=== PATIENT | male | born 1995 | race Two or more races ===

== ENCOUNTER 2021-03-01 05:01 | Inpatient (IN) | payer MEDICAID ==
[~2021-03-01] VITALS: Ht 175.3 cm; Wt 78.6 kg
[2021-03-01] VITALS (15 sets, daily range): BP systolic 91–131; BP diastolic 47–86
--- NOTE | 2021-03-01 05:01 | NUR ---
Pt BIB friends and patient's mother. Patient was seen in the back seat of car, unresponsive and grunting. Patient placed in gurny and placed in room 1A and code blue was called. Patient with pin point pupils and not responding to verbal and painful stimuli. Dr. Cleaning at bedside, MSE in progress.
[2021-03-01] MEDS ORDERED: NALOXONE HCL 0.4 MG/ML AMPUL ONE ×3 (05:11→05:13)
[2021-03-01] MEDS ORDERED: IV NORMAL SALINE 1000 ML BAG IV ONE ×2 (05:15→06:15)
[2021-03-01] MEDS ORDERED: LORAZEPAM 2 MG/1 ML VIAL ONE ×2 (05:19→06:08)
--- NOTE | 2021-03-01 05:44 | NUR ---
Xray at bedside.
[2021-03-01] MEDS ORDERED: SUCCINYLCHOLINE CHLORIDE 200 MG/10 ML VIAL ONE (05:45)
[2021-03-01] MEDS ORDERED: ROCURONIUM BROMIDE 50 MG/5 ML VIAL ONE (05:45)
[2021-03-01] MEDS ORDERED: ETOMIDATE 20 MG/10 ML VIAL IV ONE (05:45)
[2021-03-01] MEDS ORDERED: NALOXONE HCL 0.4 MG/ML AMPUL IV ONE (05:45)
[2021-03-01] MEDS ORDERED: SUCCINYLCHOLINE CHLORIDE 200 MG/10 ML VIAL IV ONE (05:45)
[2021-03-01] MEDS ORDERED: ETOMIDATE 20 MG/10 ML VIAL ONE (05:45)
[2021-03-01] MEDS ORDERED: LORAZEPAM 2 MG/1 ML VIAL IV ONE ×2 (05:45→06:00)
[2021-03-01] MEDS ORDERED: PROPOFOL 100 ML ONE (05:45)
[2021-03-01 05:48] LABS: HEMATOCRIT 45.1 % (36.7-47.1); MEAN CORPUSCULAR HEMOGLOBIN 31.5 uug (23.8-33.4); MEAN CORPUSCULAR VOLUME 95.1 fL (73.0-96.2); PLATELET COUNT (AUTO) 298 K/uL (152-348)
[2021-03-01 05:52] LABS: CREATININE 1.8 mg/dL (0.6-1.3); POTASSIUM 5.3 mmol/L (3.5-5.1)
[2021-03-01] MEDS ORDERED: PROPOFOL 100 ML IV STA (05:52)
[2021-03-01 05:58] LABS: BILIRUBIN,DIRECT 0.1 mg/dL (0.0-0.2); BILIRUBIN,TOTAL 0.3 mg/dL (0.2-1.0); TOTAL PROTEIN, SERUM 7.1 g/dL (6.4-8.2)
[2021-03-01] MEDS ORDERED: PROPOFOL 200 MG/20 ML BOTTLE IV ONE (06:00)
[2021-03-01] MEDS ORDERED: ROCURONIUM BROMIDE 100 MG in IV NORMAL SALINE 90 ML IV STA (06:00)
[2021-03-01 06:02] LABS: ABG HCO3 16.7 mmol/L; ABG PCO2 43.7 mmHg (35.0-45.0); ABG PH 7.201 (7.350-7.450); ABG PO2 65.2 mmHg (75.0-100.0); ABG SITE LEFT RADIAL; ABG TOTAL HEMOGLOBIN 15.6 G/dL (13.5-18.0); COHb 0.9 % (0.5-1.5); MetHb 0.3 % (0.0-1.5); O2Hb 88.6 % (94.0-97.0); VENT MODE VENT - A/C; VT, ABG 450 mL
[2021-03-01] MEDS ORDERED: CEFTRIAXONE 1 G in IV DEXTROSE 5% 50 ML IV ONE (06:15)
--- NOTE | 2021-03-01 06:16 | NUR ---
Called to ED for code blue; pt subsequently intubated and placed on a ventilator and blood gas was drawn. Pt is now on Null ventilator on settings AC 28, VT 500, PEEP +7 and FIO2-100%. 8.0 ETT is at approx. 25cm at the lip and is patent and secure. BVM is at bedside.
[2021-03-01] MEDS ORDERED: MIDAZOLAM HCL 50 MG in IV NORMAL SALINE 40 ML IV STA (06:24)
[2021-03-01 06:27] LABS: ETHANOL < 3 MG/DL (0-0)
[2021-03-01] MEDS ORDERED: CEFTRIAXONE /D5W 50ML IVPB **ER PYXIS IV ONE (06:28)
[2021-03-01] MEDS ORDERED: levETIRAcetam IV 1,000 MG in IV DEXTROSE 5% 100 ML IV ONE (06:30)
--- NOTE | 2021-03-01 06:30 | NUR ---
Called [facility], paged Sandy Schaffer.
[2021-03-01 06:39] LABS: *BILIRUBIN,URIN NEGATIVE (NEGATIVE); *CLARITY,URINE CLEAR (CLEAR); *COLOR,URINE YELLOW (YELLOW); *KETONES,URINE NEGATIVE (NEGATIVE); *UROBILINOGEN,URINE 0.2 E.U./dl (NORMAL); LEUKOCYTE ESTERASE ,URINE NEGATIVE (NEGATIVE); NITRITE, URINE NEGATIVE (NEGATIVE); UGLUCOSE 2+ (NEGATIVE)
[2021-03-01 06:42] LABS: *BLOOD, URINE TRACE (NEGATIVE)
[2021-03-01 06:46] LABS: ACETAMINOPHEN < 2.0 ug/mL (10-30)
[2021-03-01 06:50] LABS: *AMPHETAMINE, URINE NEGATIVE (NEGATIVE); *CANNABINOID, URINE NEGATIVE (NEGATIVE); *COCCAINE, URINE NEGATIVE (NEGATIVE); *OPIATE, URINE POSITIVE (NEGATIVE); *PHENCYCLIDINE SCREEN,URINE NEGATIVE (NEGATIVE)
[2021-03-01 06:54] LABS: BACTERIA,URINE NONE SEEN /HPF (NONE SEEN); RBC,URINE 0-3 /HPF (0-3); WBC,URINE 0-3 /HPF (0-3)
[2021-03-01 06:55] LABS: MUCUS,URINE FEW /LPF (0-FEW); SQUAMOUS EPITHELIAL CELL,UR FEW /HPF (NONE SEEN)
[2021-03-01] MEDS ORDERED: levETIRAcetam 500 MG/5 ML VIAL IV ONE (06:57)
[2021-03-01] MEDS ORDERED: FENTANYL CITRATE/PF 1,000 MCG in IV NORMAL SALINE 80 ML IV PRN (07:00)
--- NOTE | 2021-03-01 07:10 | NUR ---
Pt received laying in bed, semi-Salmon's, unable to communicate.. ETT 8.0, in place and secure with [place] Fast.. Continuous mechanical ventilation, vent: Null with settings: A/C 28, Vt 500, PEEP +7, FiO2 100%, tolerating well, no changes made at this time.. Vent alarms on and audible, functioning properly at this time.. Will continue to monitor..
[2021-03-01 07:19] LABS: BAND % (MANUAL) 19 % (0-10); LYMPHOCYTES % (MANUAL) 7 % (20-40); METAMYELOCYTES % 1 % (0-1); MONOCYTES % (MANUAL) 5 % (2-10); NEUTROPHILS % (MANUAL) 68 % (42-75)
--- NOTE | 2021-03-01 07:52 | NUR ---
REPORT GIVEN TO TABITHA OF ICU, PATIENT WILL BE GOING TO BED 4 UNDER THE CARE OF MD DAVIS
--- NOTE | 2021-03-01 08:30 | NUR ---
Dr. Puckett & Dr. Soto notified of patients arrival in ICU.
--- NOTE | 2021-03-01 08:40 | NUR ---
Dr. Ko in unit to assess patient
--- NOTE | 2021-03-01 08:43 | NUR ---
Patient shivering, gagging, hyperventilating, tachycardic during switch to Versed + Fentanyl. Sedation titrated up.
--- NOTE | 2021-03-01 08:49 | NUR ---
Patient transferred via [facility] protocol, respiratory assisted with transfer
[2021-03-01] MEDS ORDERED: PIPERACILLIN/TAZO 2.25 G in IV DEXTROSE 5% 50 ML IV SCH (09:15)
[2021-03-01] MEDS ORDERED: MORPHINE SULFATE 2 MG/1 ML DISP.SYRIN IV PRN ×2 (09:15→09:30)
[2021-03-01] MEDS ORDERED: LORAZEPAM 2 MG/1 ML VIAL IV PRN (09:15)
[2021-03-01] MEDS: IV D5/ 0.9% NACL 1,000 ML IV PRN ×2 (09:19→22:09)
[2021-03-01] MEDS ORDERED: PIPERACILLIN SODIUM/TAZOBACTAM 3.375 G in IV DEXTROSE 5% 50 ML IV ONE (09:30)
--- NOTE | 2021-03-01 09:30 | NUR ---
Dr. Soto in unit to assess patient
[2021-03-01] MEDS: MIDAZOLAM HCL 50 MG in IV NORMAL SALINE 40 ML IV PRN ×3 (10:50→23:53)
[2021-03-01] MEDS: PROPOFOL 100 ML IV PRN ×3 (10:59→19:50)
--- NOTE | 2021-03-01 11:04 | NUR ---
Patient fully awake - attempting to remove ET tube - orders received for Propofol Addendum: 03/01/21 at 1117 by TABITHA CAT RN Dr. Soto with orders to initiate Propofol infusion
--- NOTE | 2021-03-01 11:35 | NUR ---
Social Service Consultation: Mica Splitter Consultation for overdose. Patient is a 25 year old male. Per ED notes, patient was brought in by patient's mother and friends, after being found unresponsive. Patient is intubated and sedated, not interviewable. Patient's mother is bedside, and this BIOLOGICAL TECHNICAL OFFICER was able to gather information from patient's mother, Cassy, . Per patient's mother's report, patient lives at home ([address] [place] [address], [address], [place] [address]) with his mother and 14 year old sister. Patient's mother reported that patient's father is . Patient is independent with all ADL's and works a couple of side jobs, doing construction and also providing hair cuts. Per patient's mother, patient was at a friend's house in the [facility], hanging out with friends, when she got a call at around 3am from his friends telling her that patient was not responsive. Patient's mother stated that she drove from her home near [place], to the [facility], found the patient unresponsive at the friend's house and brought him to the ED in her own car. This BIOLOGICAL TECHNICAL OFFICER asked about patient's use of substances, and patient's mother stated "you know this age, they drink and experiment with some drugs". Patient's mother stated patient does drink and smokes marijuana, but was not able to provide details on frequency and amount. Per toxicology report, patient tested positive for opiates and benzos. Patient's mother stated that patient does not have any medical problems and does not take any prescribed medications. Patient's mother stated patient does not have a hx of mental illness, no hx of SI. Patient's mother stated not having any questions at this time, as she is well supported by friends and digital sales assistant, who are present at the hospital. Mica Splitter will remain available, as needed.
--- NOTE | 2021-03-01 12:11 | NUR ---
Delia LOVELL from Infectious Disease here to assess patient
[2021-03-01] MEDS: ACETAMINOPHEN 650 MG SUPP.RECT RC PRN (14:25)
--- NOTE | 2021-03-01 14:30 | NUR ---
Dr. Martinez in unit to assess patient
--- NOTE | 2021-03-01 14:33 | NUR ---
Patients Sinus Tachycardia as high as 130 - Rectal temp taken = 102.4 -- Cooling blanket applied & Tylenol Suppository given. Heart rate now 102 and decreasing 10 minutes after cooling measures
[2021-03-01] MEDS: PIPERACILLIN SODIUM/TAZOBACTAM 3.375 G in IV DEXTROSE 5% 100 ML IV SCH (17:17)
--- NOTE | 2021-03-01 17:54 | NUR ---
Patient stable. Sedated on Propofol @ 30mcg/kg & Midazolam @ 7mg/hr. Gag + cough reflex present. Pinpoint pupils. But during a change in sedative drips - patient did awaken - he opened his eyes moved both upper/lower extremities and even seemed to track his mother around the room. Sinus Rhythm. BPs controlled w/o the need of pressors. Patients temperature found to be 102.4 - was placed on cooling blanket and is now 98.1 - rectal probe in place. Some shivering observed upon arrival and sporadically throughout shift. Saturations >94% on vent. Ventilator settings: AC:28 Fio2: 100% TV: 100% PEEP: 7 - ABGs ordered for tomorrow AM. No labored breathing. At times tachypneic so sedations was titrated accordingly GI/: No bowel movement. 1150 mL of tea colored urine w/ sediment. Misc: SCDs applied
[2021-03-01] MEDS: HEPARIN SODIUM,PORCINE 5,000 UNITS/ML VIAL SQ SCH (20:46)
[2021-03-02] VITALS (25 sets, daily range): BP systolic 91–133; BP diastolic 50–87
[2021-03-02] MEDS: PROPOFOL 100 ML IV PRN (01:41)
[2021-03-02] MEDS: PIPERACILLIN SODIUM/TAZOBACTAM 3.375 G in IV DEXTROSE 5% 100 ML IV SCH ×3 (01:48→17:41)
--- NOTE | 2021-03-02 03:30 | NUR ---
Left ear & area of head photo taken / wound. Digitally disimpacted. Maroon colored drainage from PEG tube, to gravity drain.
--- NOTE | 2021-03-02 03:30 | NUR ---
PATIENT ON CONT SOLORIO VENT WITH 8.O ET/TUBE ,25CM LIP LINE, MOVE ANCHOR FAST Q2 HOURS, PT IS SEDATED, PT DOES ASSIST AT TIMES, GOOD COUGH EFFORT, SUCTIONED LIGHT PINKISH TING SECRETIONS AND SUCTION MOUTH WITH LAURA FATIMA WELL, CHANGE HME, ALL VENT ALARMS GOOD, NO VENT CHANGES MADE AT THIS TIME, ABG ORDER FOR 07:00 WILL DO EARLY, VENT PLUGGED INTO RED OUTLET.Anita CALZADA RCP Addendum: 03/02/21 at 0333 by JOSÉ CALZADA RT Amended: Links added.
--- NOTE | 2021-03-02 03:37 | NUR ---
PT ON CURRENT VENT SETTINGS, A/C 28, 500ML, PEEP 7, 100%. D CALZADA [facility]
--- NOTE | 2021-03-02 04:00 | NUR ---
Sedation vacation: opens eyes & tracks.
[2021-03-02] MEDS: ACETAMINOPHEN 650 MG SUPP.RECT RC PRN (05:05)
[2021-03-02 05:16] LABS: HEMATOCRIT 40.4 % (36.7-47.1); MEAN CORPUSCULAR HEMOGLOBIN 31.4 uug (23.8-33.4); MEAN CORPUSCULAR VOLUME 92.8 fL (73.0-96.2); PLATELET COUNT (AUTO) 142 K/uL (152-348)
[2021-03-02 05:38] LABS: MAGNESIUM 1.8 mg/dL (1.8-2.4); PHOSPHOROUS 1.9 mg/dL (2.5-4.9); POTASSIUM 3.6 mmol/L (3.5-5.1); TOTAL PROTEIN, SERUM 6.2 g/dL (6.4-8.2)
[2021-03-02 05:56] LABS: ABG BASE EXCESS -0.1 mmol/L; ABG HCO3 23.8 mmol/L; ABG PCO2 36.5 mmHg (35.0-45.0); ABG PH 7.432 (7.350-7.450); ABG PO2 294.8 mmHg (75.0-100.0); ABG SITE RIGHT BRACHIAL; COHb 0.7 % (0.5-1.5); MetHb 0.3 % (0.0-1.5); O2Hb 98.9 % (94.0-97.0); VENT MODE VENT - A/C; VT, ABG 500 mL
--- NOTE | 2021-03-02 07:42 | NUR ---
Weaning trial started, CPAP, PS 7, PEEP +5.. will continue to monitor..
--- NOTE | 2021-03-02 07:45 | NUR ---
Lowered sedation for SBT. ABG in [address] Soto order in the unit at this time
[2021-03-02] MEDS: PANTOPRAZOLE SODIUM 40 MG VIAL IV SCH (08:55)
[2021-03-02] MEDS: HEPARIN SODIUM,PORCINE 5,000 UNITS/ML VIAL SQ SCH ×2 (08:58→21:11)
[2021-03-02 08:59] LABS: ABG BASE EXCESS -0.3 mmol/L; ABG HCO3 24.6 mmol/L; ABG PH 7.396 (7.350-7.450); ABG PO2 76.3 mmHg (75.0-100.0); ABG SITE RIGHT RADIAL; ABG TOTAL HEMOGLOBIN 14.9 G/dL (13.5-18.0); COHb 0.6 % (0.5-1.5); CPAP,BG 7 cmH20; MetHb 0.3 % (0.0-1.5); O2Hb 95.1 % (94.0-97.0); VENT MODE VENT - CPAP
[2021-03-02] MEDS ORDERED: DC PROPOFOL ONCE EXTUBATED XX PRN (09:10)
--- NOTE | 2021-03-02 09:30 | NUR ---
patient extubated per orders. patient was placed on highflow nasal canula on 40L 60% FiO2.
--- NOTE | 2021-03-02 09:30 | NUR ---
Weaning trial passed, pt extubated without incident and placed on High Flow, 40 Lpm @ 60%, tolerating well at this time, will continue to monitor.. RN and pt mother at bedside..
[2021-03-02] MEDS: IV D5/ 0.9% NACL 1,000 ML IV PRN (10:51)
[2021-03-02] MEDS ORDERED: POTASSIUM PHOSPHATE MM 15 MMOL in IV NORMAL SALINE 250 ML IV ONE (16:00)
[2021-03-02] MEDS ORDERED: MORPHINE SULFATE 2 MG/1 ML DISP.SYRIN IV PRN (23:15)
[2021-03-03] VITALS (19 sets, daily range): BP systolic 96–135; BP diastolic 51–84
[2021-03-03] MEDS: IV D5/ 0.9% NACL 1,000 ML IV PRN (00:06)
[2021-03-03] MEDS: PIPERACILLIN SODIUM/TAZOBACTAM 3.375 G in IV DEXTROSE 5% 100 ML IV SCH ×3 (02:09→17:53)
--- NOTE | 2021-03-03 03:20 | NUR ---
Pt is now on high flow nasal cannula 30LPM and FIO2-60%. No respiratory distress noted.
[2021-03-03 05:36] LABS: HEMATOCRIT 43.3 % (36.7-47.1); MEAN CORPUSCULAR HEMOGLOBIN 30.9 uug (23.8-33.4); MEAN CORPUSCULAR VOLUME 92.4 fL (73.0-96.2); PLATELET COUNT (AUTO) 160 K/uL (152-348)
[2021-03-03 05:43] LABS: CREATININE 0.8 mg/dL (0.6-1.3); MAGNESIUM 1.9 mg/dL (1.8-2.4); PHOSPHOROUS 2.5 mg/dL (2.5-4.9); POTASSIUM 3.5 mmol/L (3.5-5.1)
[2021-03-03 05:49] LABS: ABG BASE EXCESS -1.8 mmol/L; ABG HCO3 21.3 mmol/L; ABG PCO2 31.9 mmHg (35.0-45.0); ABG PH 7.443 (7.350-7.450); ABG PO2 143.3 mmHg (75.0-100.0); ABG SITE RIGHT BRACHIAL; ABG TOTAL HEMOGLOBIN 14.7 G/dL (13.5-18.0); COHb 1.1 % (0.5-1.5); MetHb 0.4 % (0.0-1.5); O2Hb 97.9 % (94.0-97.0)
--- NOTE | 2021-03-03 05:55 | NUR ---
Per ABG results pt is now on HFNC 30LPM and FIO2-50%
[2021-03-03] MEDS: PANTOPRAZOLE SODIUM 40 MG VIAL IV SCH (08:14)
[2021-03-03] MEDS: HEPARIN SODIUM,PORCINE 5,000 UNITS/ML VIAL SQ SCH ×2 (08:19→20:48)
--- NOTE | 2021-03-03 08:34 | NUR ---
Upon receiving patient, rectal temp at 100.6 - cooling measures in place and will continue to closely monitor.
[2021-03-03] MEDS: ACETAMINOPHEN 650 MG SUPP.RECT RC PRN (09:33)
--- NOTE | 2021-03-03 09:35 | NUR ---
Patient refused tylenol suppository. Educated on importance, patient asked to have a PO tylenol instead. Will notify MD and change depending on result of swallow eval.
--- NOTE | 2021-03-03 09:56 | NUR ---
Seen by Dr Soto - pulmonology. New orders received and implemented.
--- NOTE | 2021-03-03 10:26 | NUR ---
Seen by speech therapist for swallow eval post-extubation. ST recommendations inputted and implemented. Tylenol supp changed to PO - given as ordered.
[2021-03-03] MEDS: ACETAMINOPHEN 325 MG TABLET PO PRN (10:57)
--- NOTE | 2021-03-03 11:08 | NUR ---
Seen by physical therapy. Changed linen while patient is up with physical therapy.
--- NOTE | 2021-03-03 12:37 | NUR ---
Patient covid PCR swab done and sent to lab. Changed patient status to PUI and placed on isolation precaution. Patient's mom at bedside and made aware of visitation protocol for COVID PUI patients. Mother verbalized understanding and requested to speak with heating unit mechanic. Director extension given to her at this time. Allowed to stay until patient finishes eating lunch. Proper PPE provided to visitor.
--- NOTE | 2021-03-03 14:06 | NUR ---
Patient on room air since lunch time at 1230, SpO2 95-98% on room air.
--- NOTE | 2021-03-03 14:39 | NUR ---
Rectal temp down to 97.7 - cooling blanket turned off but will keep in patient room for continuous temperature monitoring.
[2021-03-03 15:20] LABS: ALBUMIN 3.1; ALPHA-1-GLOBULIN 0.3; ALPHA-2-GLOBULIN 0.7; BETA GLOBULIN 0.7; GAMMA GLOBULIN 0.9; M-SPIKE Not Observed
[2021-03-03 15:21] LABS: A/G RATIO 1.2; GLOBULIN, TOTAL 2.6
--- NOTE | 2021-03-03 16:38 | NUR ---
Patient moved to CCU-4. Able to transfer to wheelchair with SBA. Patient requested guzman removal and voiding trial. Will notify MD. Central line dressing visibly soiled and changed at this time.
--- NOTE | 2021-03-03 17:15 | NUR ---
Received MD order of status change to Telemetry. Will remain in CCU-4 until able to be transferred to Telemetry unit
--- NOTE | 2021-03-03 18:55 | NUR ---
Patient SpO2 at 85-88%. Placed on 4L NC - rechecked SpO2 96-97%. Denies pain or SOB.
--- NOTE | 2021-03-03 19:15 | NUR ---
received patient awake , oriented , , able to follow command , temp 99.0 rectal , sr at 79 , iv site intact on right arm, oxygen at 4l , denies pain at this time , nonproductive cough noted
--- NOTE | 2021-03-03 19:15 | NUR ---
got report from from day shift nurse , patient is telemetry status
--- NOTE | 2021-03-03 19:15 | NUR ---
CORRECTION : RIJ INTACT , USES URINAL , ON COOLING BLANKET
--- NOTE | 2021-03-03 23:30 | NUR ---
cooling blanket was turned off
[2021-03-04] MEDS: PIPERACILLIN SODIUM/TAZOBACTAM 3.375 G in IV DEXTROSE 5% 100 ML IV SCH ×3 (01:55→18:01)
--- NOTE | 2021-03-04 02:00 | NUR ---
awake oriented , denies pain at this time , no fever noted
[2021-03-04 05:27] LABS: HEMATOCRIT 42.6 % (36.7-47.1); MEAN CORPUSCULAR HEMOGLOBIN 31.7 uug (23.8-33.4); MEAN CORPUSCULAR VOLUME 92.2 fL (73.0-96.2); PLATELET COUNT (AUTO) 197 K/uL (152-348)
[2021-03-04 05:39] LABS: CREATININE 0.9 mg/dL (0.6-1.3); PHOSPHOROUS 2.8 mg/dL (2.5-4.9); POTASSIUM 3.2 mmol/L (3.5-5.1)
[2021-03-04] MEDS: PANTOPRAZOLE SODIUM 40 MG TABLET.DR PO SCH (06:26)
[2021-03-04] MEDS: HEPARIN SODIUM,PORCINE 5,000 UNITS/ML VIAL SQ SCH ×2 (08:08→20:49)
[2021-03-04] MEDS: ACETAMINOPHEN 325 MG TABLET PO PRN (08:21)
[2021-03-04] MEDS ORDERED: POTASSIUM CHLORIDE 20 MEQ TAB.PRT.SR PO ONE (09:45)
[2021-03-04] MEDS: ACIDOPHILUS/BULGARICUS CHEW TAB PO SCH ×2 (10:04→20:49)
--- NOTE | 2021-03-04 11:39 | NUR ---
PT just completed. Patient able to walk around room on his own - no SOB noted. Patient now sitting in chair at bedside.
[2021-03-04 18:00] VITALS: BP 111/61
--- NOTE | 2021-03-04 18:38 | NUR ---
Status improving. Fully A&Ox4. Now ambulatory. Sinus Rhythm & Sinus tachy (at times) when ambulating. BPs wnls. afebrile. Saturations >94% on room air. No SOB reported. GI/: bm x 2. Misc: Did very well with PT and has been cleared by OT.
--- NOTE | 2021-03-04 19:00 | NUR ---
received patient awake , oriented , able to follow command , on RA , denies pain , dry cough noted , no fever , right internal jugular iv intact
[2021-03-04 20:00] VITALS: BP 119/83
--- NOTE | 2021-03-04 21:30 | NUR ---
mother at bedside , notified of room transfer tonight
[2021-03-04] MEDS ORDERED: ONDANSETRON 4 MG/2 ML VIAL IV PRN (22:15)
--- NOTE | 2021-03-04 22:17 | NUR ---
talked to dr mehta , got an order for cough medicatins and zofran
[2021-03-04] MEDS: GUAIFENESIN/CODEINE 5 ML LIQUID UDC PO PRN (22:22)
--- NOTE | 2021-03-04 23:15 | NUR ---
denies any nausea or feeling of vomiting after zofran medications given , dry cough noted
--- NOTE | 2021-03-04 23:15 | NUR ---
report given to hope , history , current events , procedure and medications given .
--- NOTE | 2021-03-04 23:55 | NUR ---
patient was transferred to room 314 accompanied by nurse , telemetry box placed , belongings sent with phone , research biologist, cards and lip gloss .
[2021-03-04 23:56] VITALS: BP 133/79
--- NOTE | 2021-03-05 | NUR ---
Received pt from CCU. Pt is A&Ox4, verbally responsive, able to make needs known. No signs of acute distress, non labored breathing on room air. Pt on soft diet. Pt on isolation due to pending PCR result. Safety measures initiated, call light within reach.
[2021-03-05 00:36] VITALS: BP 113/77
[2021-03-05] MEDS: PIPERACILLIN SODIUM/TAZOBACTAM 3.375 G in IV DEXTROSE 5% 100 ML IV SCH ×3 (01:29→18:33)
[2021-03-05 05:38] VITALS: BP 105/59
[2021-03-05 06:39] LABS: HEMATOCRIT 42.3 % (36.7-47.1); MEAN CORPUSCULAR HEMOGLOBIN 31.7 uug (23.8-33.4); MEAN CORPUSCULAR VOLUME 91.5 fL (73.0-96.2); PLATELET COUNT (AUTO) 227 K/uL (152-348)
[2021-03-05 06:52] LABS: CREATININE 0.9 mg/dL (0.6-1.3); POTASSIUM 3.2 mmol/L (3.5-5.1)
[2021-03-05 07:07] LABS: MAGNESIUM 1.9 mg/dL (1.8-2.4); PHOSPHOROUS 3.3 mg/dL (2.5-4.9)
[2021-03-05] MEDS: PANTOPRAZOLE SODIUM 40 MG TABLET.DR PO SCH (07:47)
--- NOTE | 2021-03-05 07:51 | NUR ---
Slept intermittently, tolerated due medications. No signs of acute distress. No significant change in condition noted through the night. all needs attended. Pending PCR result.
[2021-03-05] MEDS ORDERED: POTASSIUM CHLORIDE 20 MEQ TAB.PRT.SR PO ONE (08:00)
[2021-03-05] MEDS: HEPARIN SODIUM,PORCINE 5,000 UNITS/ML VIAL SQ SCH ×2 (10:04→21:20)
[2021-03-05] MEDS: ACIDOPHILUS/BULGARICUS CHEW TAB PO SCH ×2 (10:26→21:19)
[2021-03-05 11:40] VITALS: BP 116/60
[2021-03-05 15:37] VITALS: BP 112/60
--- NOTE | 2021-03-05 16:30 | NUR ---
Patient is transferred to room 315 per MD order. Patient is cooperative upon assessment. @1800 IV line started at the left hand gauge 22. IV medications given per MD order. Triple lumen IJ intact. All needs met promptly. On room air saturating at 95% no s/s of distress. Will endorse accordingly.
[2021-03-05 20:15] VITALS: BP 116/71
--- NOTE | 2021-03-05 23:00 | NUR ---
R IJ TLC discontinued as ordered. no bleeding noted. Tolerated well by the pt.
[2021-03-06 00:03] VITALS: BP 123/74
[2021-03-06] MEDS: ACETAMINOPHEN 325 MG TABLET PO PRN ×2 (00:30→13:54)
[2021-03-06] MEDS: GUAIFENESIN/CODEINE 5 ML LIQUID UDC PO PRN ×2 (00:30→16:19)
[2021-03-06] MEDS: PIPERACILLIN SODIUM/TAZOBACTAM 3.375 G in IV DEXTROSE 5% 100 ML IV SCH ×2 (02:24→10:15)
[2021-03-06 04:15] VITALS: BP 93/53
[2021-03-06] MEDS: PANTOPRAZOLE SODIUM 40 MG TABLET.DR PO SCH (06:12)
[2021-03-06 06:30] LABS: HEMATOCRIT 44.5 % (36.7-47.1); MEAN CORPUSCULAR HEMOGLOBIN 31.5 uug (23.8-33.4); MEAN CORPUSCULAR VOLUME 91.5 fL (73.0-96.2); PLATELET COUNT (AUTO) 243 K/uL (152-348)
--- NOTE | 2021-03-06 06:41 | NUR ---
Slept intermittently, no significant change in condition noted through the night. Denies pain or discomfort. Coughing noted, PRN cough medicine administered. Tolerated due medications well. IV abx still infusing. All needs attended to and met.
[2021-03-06 06:52] LABS: CREATININE 1.1 mg/dL (0.6-1.3); PHOSPHOROUS 4.9 mg/dL (2.5-4.9); POTASSIUM 3.5 mmol/L (3.5-5.1)
[2021-03-06] MEDS: ACIDOPHILUS/BULGARICUS CHEW TAB PO SCH (08:31)
[2021-03-06] MEDS: HEPARIN SODIUM,PORCINE 5,000 UNITS/ML VIAL SQ SCH (08:32)
--- NOTE | 2021-03-06 09:00 | NUR ---
RECEIVED PATIENT IN ROOM AWAKE ALERT AND ORIENTED COOPERATIVE AT THIS TIME HE IS ON ROOM AIR WITH NO SHORTNESS OF BREATH LEFT HAND/WRIST HEPLOCK IS INTACT WITH NO S/S OF INFILTERATION ON SITE REMAIN ON ATB ORDERED WITH NO ADVERSE OR ALLERGIC REACTIONS AT THIS TIME CALL LIGHTS AND PERSONAL BELONGINGS ARE WITHIN EASY REACH MADE COMFORTABLE WILL CONTINUE TO OBSERVE.
[2021-03-06 11:12] VITALS: BP 105/57
--- NOTE | 2021-03-06 13:54 | NUR ---
STATED C/O HEADACHE MEDICATED WITH TYLENOL ORDERED MADE COMFORTABLE.WILL CONTINUE TO OBSERVE.
[2021-03-06 15:34] VITALS: BP 117/55
--- NOTE | 2021-03-06 16:00 | NUR ---
PATIENT STATED THAT HIS IV SITE WAS HURTING HIM SO IV REMOVED THERE WAS NO REDNESS OR SWELLING AT THIS TIME WILL REINSERT IF NEEDED BEFORE THE NEXT IV ANTIBIOTICS IS DUE.
--- NOTE | 2021-03-06 16:30 | NUR ---
NOTED DISCHARGE ORDER PATIENTS MOTHER IS IN THE ROOM AND NOTIFIED HER BUT SHE STATED THAT SHE WANTS TO SEE AND TALK TO THE DOCTOR THE PATIENT STATED THAT HE DID NOT REMEMBER TALKING OR SEEING THE DOCTOR SO I SENT A MESSAGE TO SHAHIDA ESTEVEZ AND HE STATED THAT HE ALREADY SAW THE PATIENT TODAY.
--- NOTE | 2021-03-06 18:12 | NUR ---
PATIENTS MOTHER JOVANYN IS DEMANDING TO TALK TO DR YVETTE ESTEVEZ AND ALSO FOR PRESCRIPTION SO I CALLED THE [employer] WHO SPOKE WITH PATIENTS MOTHER JOVANNY AND SHE IS AGREEING TO TAKE THE PATIENT HOME TODAY AND WILL CALL THE PATIENTS MOM TOMORROW AND WILL ORDER ANY NECESSARY MEDICATIONS TO THE PATIENTS PHARMACY AND SHE CAN HAND RIGGER AND MOM STATED OKAY.
--- NOTE | 2021-03-06 18:37 | NUR ---
DISCHARGE INSTRUCTIONS GIVEN TO PATIENT AND HIS MOTHER AND PATIENTS MOM JOVANNY SIGNED AND EXPRESSED UNDERSTANDING BALDEMAR THE DIP FILLER WILL CALL PATIENTS MOM TOMORROW TO FINALISE IF PATIENT WILL REQUIRE ANY PRESCRIPTIONS AND SHE EXPRESSED UNDERSTANDING.
--- NOTE | 2021-03-06 18:50 | NUR ---
PATIENT DISCHARGED TAKEN DOWN BY W/CHAIR WITH DISCHARGE INSTRUCTIONS AND HIS CELL PHONE HE HAS NO OTHER PERSONAL BELONGINGS IN SATISFACTORY CONDITION.
[2021-03-07] MEDS ORDERED: GUAI120013 PO (10:29)
[2021-03-07] MEDS ORDERED: ALBU8.5H8 INH (10:29)
[2021-03-07] MEDS ORDERED: AMOX-427 PO (10:29)
== END 2021-03-06 18:50 | disposition home or self-care (01) | DRG 812 ==
LOC: ER 05:04 → CCU 07:47 → UNDODISIN 03-04 23:55 → TELE3 03-04 23:55
PROVIDERS: ADMIT Internal Medicine; ATTEND Nurse Practitioner Acute Care
PROC: 0BH17EZ Insertion of Endotracheal Airway into Trachea, Via Natural or Artificial Opening (ICD-10-PCS; principal; 2021-03-01)
PROC: 02HV33Z Insertion of Infusion Device into Superior Vena Cava, Percutaneous Approach (ICD-10-PCS; principal; 2021-03-01)
PROC: B548ZZA Ultrasonography of Superior Vena Cava, Guidance (ICD-10-PCS; principal; 2021-03-01)
PROC: 5A1945Z Respiratory Ventilation, 24-96 Consecutive Hours (ICD-10-PCS; principal; 2021-03-01)
DX: T40.2X1A Poisoning by other opioids, accidental (unintentional), initial encounter (principal); N17.0 Acute kidney failure with tubular necrosis; R40.20 Unspecified coma; I46.9 Cardiac arrest, cause unspecified; J69.0 Pneumonitis due to inhalation of food and vomit; J96.01 Acute respiratory failure with hypoxia; J96.02 Acute respiratory failure with hypercapnia; A41.9 Sepsis, unspecified organism; R56.9 Unspecified convulsions; M62.82 Rhabdomyolysis; R65.21 Severe sepsis with septic shock; T42.4X1A Poisoning by benzodiazepines, accidental (unintentional), initial encounter; Z20.822 Contact with and (suspected) exposure to COVID-19; R73.9 Hyperglycemia, unspecified; E87.5 Hyperkalemia
CPT/HCPCS: 36415; 36600; 51702; 70030-TC; 71045; 83605; 83735; 83970; 84100; 84155; 84165; 85025; 85730; 86140; 86803; 87040; 87070; 87086; 87806; 93005; 94002; 97161; A4217; A4663; C9113; G0378; G0480; J0330; J0696; J1644; J1953; J2060; J2250; J2270; J2310; J2405; J2543; J3010; J3490; J7030; J7042; J7050; J7060; U0003